=== PATIENT | female | born 2000 | race Caucasian/White ===

== ENCOUNTER 2023-02-17 19:02 | Emergency (ER) | payer OTHER, SELFPAY ==
[2023-02-17 19:21] VITALS: BP 135/80; PULSE 90; RESP 16; TEMP 36.9; O2SAT 96; BMI 33.6
--- OUTSIDE RECORDS SUMMARY | 2023-02-17 20:30 | XMS_ITS | Continuity of Care Document ---
Author Name Unknown Organization [facility] Address [address] [place] [address]- Care Team Providers Care Change Advisor Name Role Phone Jatinder GARCIA, Vannesa Primary Care Physician Encounter [facility] [place] Date(s): 07/01/22 - 08/19/[address] [address] Attending Physician: Not on Staff, Attending MD Allergies, Adverse Reactions, Alerts No Known Allergies Immunizations Given and Recorded Vaccine Date Status Refusal Reason tetanus/diphtheria/pertussis, acel(Tdap) 02/28/22 Given tetanus/diphtheria/pertussis, acel(Tdap) 01/31/17 Given SARS-CoV-2 mRNA (tozinameran 5y-11y) vax 1 11/13/20 Recorded influenza virus vaccine, inactivated 2 09/01/16 Gi chiara Not Given Vaccine Date Status Refusal Reason SARS-CoV-2 mRNA (xfajpjo-sssh-hemia) vax 3 05/11/22 Not Given Patient Refuses 1Result Comment: She can remember which one 2Admin Note: AFLURIA VACCINE 3Result Comment: declined vaccine Medications Teresa 0.35 mg oral tablet 1 tablet = 0.35 mg, By Mouth, Daily, # 30 tablet, 3 Refills, Maintenance, 05/12/22 8:36:00 EDT, Tablet, [id number], Partial fill upon patient request if the prescription is for a schedule II opioid drug., 159, cm, 05/12/22 8:27:00 EDT, Height,... Start Date: 05/12/22 Status: Ordered Colace sodium 100 mg oral capsule 100 mg, 1, capsule, By Mouth, 2 times a day, PRN, # 20 capsule, Refills 0, Tot. Refills 0, Maintenance, for constipation, 05/12/22 8:36:00 EDT, Route to Pharmacy Electronically, [facility]/pharmacy #[id number], Partial fill upon patient request if the prescription... Start Date: 05/12/22 Status: Ordered ibuprofen 800 mg oral tablet 800 mg, 1, tablet, By Mouth, 3 times a day, PRN, # 30 tablet, Refills 0, Tot. Refills 0, Maintenance, for pain, 05/12/22 8:36:00 EDT, Route to [facility]acy Electronically, [id number], Partial fill upon patient request if the prescription is for a... Start Date: 05/12/22 Status: Ordered Prenatabs Rx oral tablet 1 tablet, By Mouth, Daily, # 30 tablet, 11 Refills, Maintenance, 09/16/21 10:17:00 EDT, Tablet, [facility]/pharmacy #[id number], Partial fill upon patient request if the prescription is for a schedule II opioid drug., 1 tablet By Mouth Daily, 159, cm, 09/16/21 9:5... Start Date: 09/16/21 Status: Ordered Proctozone HC 2.5% topical cream 1 applicator, Topically, 3 times a day, apply in a thin film to the affected skin and rub in gentlyand completely, # 30 Gm, 0 Refills, Maintenance, 03/10/21 11:44:00 EDT, [facility]/pharmacy #[id number], Partialfill upon patient request if the prescription is fo... Start Date: 03/10/21 Status: Ordered Tylenol 8 Hour 650 mg oral tablet, extended release 2 tablet = 1,300 mg, By Mouth, Every 8 hours, PRN as needed for pain, # 24 tablet, 0 Refills, Maintenance, 05/12/22 8:36:00 EDT, ER Tablet, [id number], Partial fill upon patient request if the prescription is for a schedule II opioid drug., 15... Start Date: 05/12/22 Status: Ordered Problem List Condition Confirmation Course Effective Dates Status Health St atus Informant History of panic attacks Confirmed Active History of depression Confirmed Active Obese class II Confirmed Active Obesity during Confirmed Active PCOS (polycystic ovarian syndrome) Confirmed Active Confirmed Active COVID-19 vaccine second dose not administered 1 Confirmed Active Maternal varicella, non-immune Confirmed Active 1States she received one dose maybe Moderna Social History Social History Type Response Smoking Status Never (less than 100 in lifetime) entered on: 10/04/21 Sex Patient Care team information Personnel Name: Vannesa Tobias NP Address: Address: [address] [place] [address] [facility] [place], [place] [address]
--- OUTSIDE RECORDS SUMMARY | 2023-02-17 20:30 | XMS_ITS | Continuity of Care Document ---
Author Name Unknown Organization [facility] Address [address] [place] [address]- Care Team Providers Care Equine Internship Name Role Phone Jatinder GARCIA, Vannesa Primary Care Physician Encounter [facility] [place] Date(s): 02/25/22 - 03/27/[address] [address]- Allergies, Adverse Reactions, Alerts No Known Allergies Immunizations Given and Recorded Vaccine Date Status Refusal Reason tetanus/diphtheria/pertussis, acel(Tdap) 02/28/22 Given tetanus/diphtheria/pertussis, acel(Tdap) 01/31/17 Given SARS-CoV-2 mRNA (tozinameran 5y-11y) vax 1 11/13/20 Recorded influenza virus vaccine, inactivated 2 09/01/16 Gi chiara 1Result Comment: She can remember which one 2Admin Note: AFLURIA VACCINE Medications Prenatabs Rx oral tablet 1 tablet, By Mouth, Daily, # 30 tablet, 11 Refills, Maintenance, 09/16/21 10:17:00 EDT, Tablet, [facility]/pharmacy #[id number], Partial fill upon patient request if the [...] Gm, 0 Refills, Maintenance, 03/10/21 11:44:00 EDT, [id number], Partialfill upon patient request if the prescription is fo... Start Date: 03/10/21 Status: Ordered Problem List Condition Effective Dates Status Health Status Inform ant History of panic attacks(Confirmed) Active History of depression(Confirmed) Active Obese class II(Confirmed) Active Obesity during (Confirmed) Active PCOS (polycystic ovarian syndrome)(Confirmed) Active (Confirmed) Active COVID-19 vaccine second dose not administered(Confirmed) 1 Active Maternal varicella, non-immune(Confirmed) Active 1States she received one dose maybe Moderna Social History Social History Type Response Smoking Status Never (less than 100 in lifetime) entered on: 10/04/21 Sex
--- OUTSIDE RECORDS SUMMARY | 2023-02-17 20:30 | XMS_ITS | Continuity of Care Document ---
Author Name Unknown Organization [facility] Address [address] [place] [address]- Care Team Providers Care Facility Maintenance Helper Name Role Phone Jatinder GARCIA, Vannesa Primary Care Physician [phone] Encounter [facility] [place] Date(s): 12/17/21 - 03/13/[address] [address]- Attending Physician: Not on Staff, Attending MD [...] 11 Refills, Maintenance, 09/16/21 10:17:00 EDT, Tablet, [id number], Partial fill upon patient request if the [...] 0 Refills, Maintenance, 03/10/21 11:44:00 EDT, [id number], Partialfill upon patient request if the prescription [...]
--- OUTSIDE RECORDS SUMMARY | 2023-02-17 20:30 | XMS_ITS | Continuity of Care Document ---
Author Name Unknown Organization [facility] Address [address] [place] [address]- Care Team Providers Care Egg Pasteurizer Name Role Phone Jatinder GARCIA, Vannesa Primary Care Physician [place] [facility] [place] 11/30/[place] - 12/30/[address] [address]- Allergies, Adverse Reactions, Alerts No Known Allergies Immunizations Given and Recorded Vaccine Date Status Refusal Reason SARS-CoV-2 mRNA (tozinameran 5y-11y) vax 1 11/13/20 Recorded tetanus/diphtheria/pertussis, acel(Tdap) 01/31/17 Given influenza virus vaccine, inactivated 2 09/01/16 Gi chiara 1Result Comment: She can remember which one 2Admin Note: AFLURIA VACCINE Medications Prenatabs Rx oral tablet 1 tablet, By Mouth, Daily, # 30 tablet, 11 Refills, Maintenance, 09/16/21 10:17:00 EDT, Tablet, [id number], Partial fill upon patient request if the prescription is for a schedule II opioid drug., 1 tablet By Mouth Daily, 159, cm, 09/16/21 9:5... Start Date: 09/16/21 Status: Ordered Multivitamins with Folic Acid 1 mg oral tablet 1 tablet, By Mouth, Daily, # 90 tablet, 2 Refills, Maintenance, 10/04/21 11:31:00 EST, [id number], Partial fill upon patient request if the prescription is for a schedule II opioid drug., 1 tablet By Mouth Daily, 159, cm, 10/04/21 9:42:00 EST,... Start Date: 10/04/21 Status: Ordered Proctozone HC 2.5% topical cream 1 applicator, Topically, 3 times a day, apply in a thin film to the affected skin and rub in gentlyand completely, # 30 Gm, 0 Refills, Maintenance, 03/10/21 11:44:00 EDT, [id number], Partialfill upon patient request if the prescription is fo... Start Date: 03/10/21 Status: Ordered Problem List Condition Effective Dates Status Health Status Inform ant HIstory of Marijuana use 2015(Confirmed) Active History of panic attacks(Confirmed) Active History of depression(Confirmed) Active Obese class I(Confirmed) Active Obesity during (Confirmed) Active PCOS (polycystic ovarian syndrome)(Confirmed) Active (Confirmed) Active COVID-19 vaccine second dose not administered(Confirmed) 1 Active Maternal varicella, non-immune(Confirmed) Active 1States she received one dose maybe Moderna Social History Social History Type Response Smoking Status Never (less than 100 in lifetime) entered on: 10/04/21 Sex
--- OUTSIDE RECORDS SUMMARY | 2023-02-17 20:30 | XMS_ITS | Continuity of Care Document ---
Author Name Unknown Organization [facility] Address [address] [place] [address]- Care Team Providers Care Acoustical Material Worker Name Role Phone Jatinder GARCIA, Vannesa Primary Care Physician Encounter [facility] [place] Date(s): 03/05/21 - 04/04/21 [facility] [address] [address]- Allergies, Adverse Reactions, Alerts Substance Reaction Severity Status NKA Active Immunizations Given and Recorded Vaccine Date Status Refusal Reason tetanus/diphtheria/pertussis, acel(Tdap) 01/31/17 Given influenza virus vaccine, inactivated 1 09/01/16 Gi chiara 1Admin Note: AFLURIA VACCINE Medications Proctozone HC 2.5% topical cream 1 applicator, Topically, 3 times a day, apply in a thin film to the affected skin and rub in gentlyand completely, # 30 Gm, 0 Refills, Maintenance, 03/10/21 11:44:00 EDT, [facility]/pharmacy #[id number], Partialfill upon patient request if the prescription is fo... Start Date: 03/10/21 Status: Ordered Problem List Condition Effective Dates Status Health Status Inform ant Abnormal uterine bleeding(Confirmed) Active Marijuana use(Confirmed) Active Contraception management(Confirmed) Active Depression(Confirmed) Active Encounter for supervision of normal in teen primigravida, antepartum(Confirmed) Active Encounter for IUD removal(Confirmed) Active Supervision of normal first teen (Confirmed) Active Social History Social History Type Response Smoking Status Never smoker entered on: 10/04/16 Sex
--- OUTSIDE RECORDS SUMMARY | 2023-02-17 20:30 | XMS_ITS | Continuity of Care Document ---
Author Name Unknown Organization [facility] Address [address] [place] [address]- Care Team Providers Care Can Machine Operator Name Role Phone Jatinder GARCIA, Vannesa Primary Care Physician [place] [facility] [place] Date(s): 04/21/22 - 05/21/[address] [address] Allergies, Adverse Reactions, Alerts No Known Allergies Immunizations Given and Recorded Vaccine Date Status Refusal Reason tetanus/diphtheria/pertussis, acel(Tdap) 02/28/22 Given tetanus/diphtheria/pertussis, acel(Tdap) 01/31/17 Given SARS-CoV-2 mRNA (tozinameran 5y-11y) vax 1 11/13/20 Recorded influenza virus vaccine, inactivated 2 09/01/16 Gi chiara Not Given Vaccine Date Status Refusal Reason SARS-CoV-2 mRNA ([id number]) vax 3 05/11/22 Not Given Patient Refuses 1Result Comment: She can remember which one 2Admin Note: AFLURIA VACCINE 3Result Comment: declined vaccine Medications Teresa 0.35 mg oral tablet 1 tablet = 0.35 mg, By Mouth, Daily, # 30 tablet, 3 Refills, Maintenance, 05/12/22 8:36:00 EDT, Tablet, [id number], Partial fill upon patient request if the prescription is for a schedule II opioid drug., 159, cm, 05/12/22 8:27:00 EDT, Height,... Start Date: 05/12/22 Status: Ordered Colace sodium 100 mg oral capsule 100 mg, 1, capsule, By Mouth, 2 times a day, PRN, # 20 capsule, Refills 0, Tot. Refills 0, Maintenance, for constipation, 05/12/22 8:36:00 EDT, Route to Pharmacy Electronically, [facility]/pharmacy #[id number], Partial fill upon patient request [...] Gm, 0 Refills, Maintenance, 03/10/21 11:44:00 EDT, [facility]/pharmacy #[id number], Partialfill upon patient request if the prescription [...] Date: 05/12/22 Status: Ordered Problem List Condition Effective Dates [...]
--- OUTSIDE RECORDS SUMMARY | 2023-02-17 20:30 | XMS_ITS | Continuity of Care Document ---
Author Name Unknown Organization [facility] Address [address] [place] [address]- Care Team Providers Care Pipe Insulator Helper Name Role Phone Jatinder GARCIA, Vannesa Primary Care Physician [place] [facility] [place] 03/09/[place] - 04/08/[address] [address]- Allergies, Adverse Reactions, Alerts Substance Reaction Severity [...] 0 Refills, Maintenance, 03/10/21 11:44:00 EDT, [id number], Partialfill upon patient request if the [...]
--- OUTSIDE RECORDS SUMMARY | 2023-02-17 20:30 | XMS_ITS | Continuity of Care Document ---
Author Name Unknown Organization [facility] Address [address] [place] [address]- Care Team Providers Care Video Tape Editor Name Role Phone Jatinder GARCIA, Vannesa Primary Care Physician [place] [facility] [place] - 12/22/[address] [address]- Attending Physician: Not on Staff, Attending MD [...] 0 Refills, Maintenance, 03/10/21 11:44:00 EDT, [id number], Partialfill upon patient request if the prescription [...]
--- OUTSIDE RECORDS SUMMARY | 2023-02-17 20:31 | XMS_ITS | Continuity of Care Document ---
Author Name Unknown Organization [facility] Address [address] [place] [address]- Care Team Providers Care Electric Motor Assembler And Tester Name Role Phone Jatinder GARCIA, Vannesa Primary Care Physician [place] [facility] [place]/10[place] - 06/09/[address] [address] Allergies, Adverse Reactions, Alerts No Known Allergies Immunizations Given and Recorded Vaccine Date Status Refusal Reason tetanus/diphtheria/pertussis, acel(Tdap) 02/28/22 Given tetanus/diphtheria/pertussis, acel(Tdap) 01/31/17 Given SARS-CoV-2 mRNA (tozinameran 5y-11y) vax 1 11/13/20 Recorded influenza virus vaccine, inactivated 2 09/01/16 Gi chiara Not Given Vaccine Date Status Refusal Reason SARS-CoV-2 mRNA (faehuwh-bxmq-qoksx) vax 3 05/11/22 Not Given Patient Refuses 1Result Comment: She can remember which one 2Admin Note: AFLURIA VACCINE 3Result Comment: declined vaccine Medications Teresa 0.35 mg oral tablet 1 tablet = 0.35 mg, By Mouth, Daily, # 30 tablet, 3 Refills, Maintenance, 05/12/22 8:36:00 EDT, Tablet, [id number], Partial fill upon patient request if the prescription is for a schedule II opioid drug., 159, cm, 05/12/22 8:27:00 EDT, Height,... Start Date: 05/12/22 Status: Ordered Colace sodium 100 mg oral capsule 100 mg, 1, capsule, By Mouth, 2 times a day, PRN, # 20 capsule, Refills 0, Tot. Refills 0, Maintenance, for constipation, 05/12/22 8:36:00 EDT, Route to Pharmacy Electronically, [facility]/pharmacy #[id number], Partial fill upon patient request if [...] Gm, 0 Refills, Maintenance, 03/10/21 11:44:00 EDT, [facility]/pharmacy #[id number], Partialfill upon patient request if the prescription [...]
--- OUTSIDE RECORDS SUMMARY | 2023-02-17 20:31 | XMS_ITS | Continuity of Care Document ---
Author Name Unknown Organization [facility] Address [address] [place] [address]- Care Team Providers Care Wood Technologist Name Role Phone Jatinder GARCIA, Vannesa Primary Care Physician Encounter [facility] [place] Date(s): 11/04/21 - 12/04/[address] [address]- Allergies, Adverse Reactions, Alerts No Known Allergies [...] 0 Refills, Maintenance, 03/10/21 11:44:00 EDT, [id number], Partialfill upon patient request if the prescription [...]
--- OUTSIDE RECORDS SUMMARY | 2023-02-17 20:31 | XMS_ITS | Continuity of Care Document ---
Author Name Unknown Organization [facility] Address [address] [place] [address]- Care Team Providers Care Freight Separator Name Role Phone Jatinder GARCIA, Vannesa Primary Care Physician Encounter [facility] [place] Date(s): 10/22/21 - 12/19/[address] [address] Attending Physician: Not on Staff, Attending MD [...] 0 Refills, Maintenance, 03/10/21 11:44:00 EDT, [id number], Partialfill upon patient request if the prescription [...]
--- OUTSIDE RECORDS SUMMARY | 2023-02-17 20:31 | XMS_ITS | Continuity of Care Document ---
Author Name Unknown Organization [facility] Address [address] [place] [address]- Care Team Providers Care Welder Experimental Name Role Phone Jatinder GARCIA, Vannesa Primary Care Physician En[place] [facility] [place] Date(s): 09/28/22 - 10/28/[address] [address] Allergies, Adverse Reactions, Alerts No Known Allergies Immunizations Given and Recorded Vaccine Date Status Refusal Reason tetanus/diphtheria/pertussis, acel(Tdap) 02/28/22 Given tetanus/diphtheria/pertussis, acel(Tdap) 01/31/17 Given SARS-CoV-2 mRNA (tozinameran 5y-11y) vax 1 11/13/20 Recorded influenza virus vaccine, inactivated 2 09/01/16 Gi chiara Not Given Vaccine Date Status Refusal Reason SARS-CoV-2 mRNA (bpanwoa-yfrw-jrrpa) vax 3 05/11/22 Not Given Patient Refuses 1Result Comment: She can remember which one 2Admin Note: AFLURIA VACCINE 3Result Comment: declined vaccine Medications Teresa 0.35 mg oral tablet 1 tablet = 0.35 mg, By Mouth, Daily, # 30 tablet, 3 Refills, Maintenance, 05/12/22 8:36:00 EDT, Tablet, [id number], Partial fill upon patient request if the prescription is for a schedule II opioid drug., 159, cm, 05/12/22 8:27:00 EDT, Height,... Start Date: 05/12/22 Status: Ordered Colace sodium 100 mg oral capsule 100 mg, 1, capsule, By Mouth, 2 times a day, PRN, # 20 capsule, Refills 0, Tot. Refills 0, Maintenance, for constipation, 05/12/22 8:36:00 EDT, Route to Pharmacy Electronically, [facility]/pharmacy #[id number], Partial fill upon patient request [...] 11 Refills, Maintenance, 09/16/21 10:17:00 EDT, Tablet, [facility]/pharmacy #[id number], Partial fill upon patient request [...] Gm, 0 Refills, Maintenance, 03/10/21 11:44:00 EDT, [facility]/pharmacy #[id number], Partialfill upon patient request if the [...] on: 10/04/21 Sex Patient Care team information Care Team Personnel Name: Vannesa Tobias NP Position: S Outreach Member Role: PCP Address: Address: [address] [place] [address] [place] [address]- Care Team Related Persons Name: LLOYD AUSTIN Address: [employer] Address: [address] [place] [address] Name: SADIA LI Address: [address] [place] [address] Name: GEORGINA LI Address: [address] [place] [address]
--- OUTSIDE RECORDS SUMMARY | 2023-02-17 20:31 | XMS_ITS | Continuity of Care Document ---
Author Name Unknown Organization [facility] Address [address] [place] [address]- Care Team Providers Care Customer Relations Coordinator Name Role Phone Ofelia GARCIA, Gia Primary Care Physician En[place] [facility] [place] Date(s): 06/01/20 - 07/01/20 [facility] [address] [address]- [facility] Allergies, Adverse Reactions, Alerts Substance Reaction Severity Status NKA Active Immunizations Given and Recorded Vaccine Date Status Refusal Reason tetanus/diphtheria/pertussis, acel(Tdap) 01/31/17 Given influenza virus vaccine, inactivated 1 09/01/16 Gi chiara 1Admin Note: AFLURIA VACCINE Medications azithromycin 500 mg oral tablet 2 tablet = 1,000 mg, By Mouth, Once, # 2 tablet, 0 Refills, Soft Stop, 04/16/19 8:39:46 EDT, Tablet Start Date: 04/16/19 Status: Ordered Problem List Condition Effective Dates Status Health Status Inform ant Marijuana use(Confirmed) Active Contraception management(Confirmed) Active Depression(Confirmed) Active Encounter for supervision of normal in teen primigravida, antepartum(Confirmed) Active Encounter for IUD removal(Confirmed) Active Supervision of normal first teen (Confirmed) Active Social History Social History Type Response Smoking Status Never smoker entered on: 10/04/16 Sex
--- OUTSIDE RECORDS SUMMARY | 2023-02-17 20:31 | XMS_ITS | Continuity of Care Document ---
Author Name Unknown Organization [facility] Address [address] [place] [address]- Care Team Providers Care Social Staff Worker Name Role Phone Jatinder GARCIA, Vannesa Primary Care Physician Encounter [facility] [place] Date(s): 09/09/21 - 10/09/[address] [address]- Allergies, Adverse Reactions, Alerts Substance Reaction Severity [...] Gm, 0 Refills, Maintenance, 03/10/21 11:44:00 EDT, [facility]/pharmacy #[id number], Partialfill upon patient request if the prescription is fo... Start Date: 03/10/21 Status: Ordered pyridoxine 25 mg oral tablet 1 tablet = 25 mg, By Mouth, 3 times a day, for 14 days, # 42 tablet, 1 Refills, Acute 11/01/21 11:31:00 EST, 10/04/21 11:31:00 EST, Tablet, [facility]/pharmacy #[id number], Partial fill upon patient request if the prescription is for a schedule II opioid drug., 15... Start Date: 10/04/21 Stop Date: 11/01/21 Status: Ordered Unisom 25 mg oral tablet 1 tablet = 25 mg, By Mouth, Daily at bedtime, PRN for sleep, # 16 tablet, 0 Refills, Acute 10/22/2111:31:00 EST, 10/04/21 11:31:00 EST, Tablet, [id number], Partial fill upon patient request if the prescription is for a schedule II opioid drug... Start Date: 10/04/21 Stop Date: 10/22/21 Status: Ordered Problem List Condition Effective Dates Status Health Status Inform ant HIstory of Marijuana use 2015(Confirmed) Active History of Depression in [employer] 2014- 2015(Confirmed) Active History of panic attacks(Confirmed) Active History of chlamydia(Confirmed) Active Encounter for IUD removal(Confirmed) Active PCOS (polycystic ovarian syndrome)(Confirmed) Active COVID-19 vaccine second dose not administered(Confirmed) 1 Active 1States she received one dose maybe Moderna Social History Social History Type Response Smoking Status Never (less than 100 in lifetime) entered on: 10/04/21 Sex
--- OUTSIDE RECORDS SUMMARY | 2023-02-17 20:31 | XMS_ITS | Continuity of Care Document ---
Author Name Unknown Organization [facility] Address [address] [place] [address]- Care Team Providers Care Tight Rope Walker Name Role Phone Vannesa Tobias NP Primary Care Physician [place] [facility] [place] - 01/28/[address] [address] Attending Physician: Lavell Batres Admitting Physician: Lavell Batres Referring Physician: AdmtrLavell Allergies, Adverse Reactions, Alerts No Known Allergies Immunizations Given and Recorded Vaccine Date Status Refusal Reason tetanus/diphtheria/pertussis, acel(Tdap) 02/28/22 Given tetanus/diphtheria/pertussis, acel(Tdap) 01/31/17 Given SARS-CoV-2 mRNA (tozinameran 5y-11y) vax 1 11/13/20 Recorded influenza virus vaccine, inactivated 2 09/01/16 Gi chiara Not Given Vaccine Date Status Refusal Reason SARS-CoV-2 mRNA (atkiqgu-jchw-exruu) vax 3 05/11/22 Not Given Patient Refuses 1Result Comment: She can remember which one 2Admin Note: AFLURIA VACCINE 3Result Comment: declined vaccine Medications Teresa 0.35 mg oral tablet 1 tablet = 0.35 mg, By Mouth, Daily, # 30 tablet, 3 Refills, Maintenance, 05/12/22 8:36:00 EDT, Tablet, [id number], Partial fill upon patient request if the prescription is for a schedule II opioid drug., 159, cm, 05/12/22 8:27:00 EDT, Height,... Start Date: 05/12/22 Status: Ordered Colace sodium 100 mg oral capsule 100 mg, 1, capsule, By Mouth, 2 times a day, PRN, # 20 capsule, Refills 0, Tot. Refills 0, Maintenance, for constipation, 05/12/22 8:36:00 EDT, Route to Pharmacy Electronically, [facility]/pharmacy #[id number], Partial fill upon patient request if the prescription... Start Date: 05/12/22 Status: Ordered ibuprofen 800 mg oral tablet 800 mg, 1, tablet, By Mouth, 3 times a day, PRN, # 30 tablet, Refills 0, Tot. Refills 0, Maintenance, for pain, 05/12/22 8:36:00 EDT, Route to Pharmacy Electronically, [facility]/pharmacy #[id number], Partial fill upon patient request if the prescription is for a... Start Date: 05/12/22 Status: Ordered Prenatabs Rx oral tablet 1 tablet, By Mouth, Daily, # 30 tablet, 11 Refills, Maintenance, 09/16/21 10:17:00 EDT, Tablet, [facility]/pharmacy #[id number], Partial fill upon patient [...] 0 Refills, Maintenance, 03/10/21 11:44:00 EDT, [facility]/pharmacy #[id number], Partialfill upon patient request if the prescription [...] 100 in lifetime) entered on: 10/04/21 Sex Note * Dominguez Orellana: PERFORM, SIGN, VERIFY Event Display: Patient Education/Instruction Authored Date: [id number] [facility] Sales Center Manager Clinical Summary Person Information Visit Date 03/17/2017 4:20 PM Name SANA LOCK Age 16 Years 2000 12:00 AM PCP Rhea RAMSAY, Paula Overton PCP Sex Female Race White Ethnicity Non-/Non- Language Honduran You can now view a summary of your hospital visit from the comfort of your home through a free online portal called katena. katena is a website that allows you to securely view your medical information including discharge summary, medications and follow-up visits. You can also send a secure electronic message to your doctor???s office to request appointments, renew medicationsor just ask a question. You can enroll at [email or web address] or register during your next office visit. Smoking can increase your chances of developing chronic health problems and can cause harmful effects to other family members in your house. If you smoke, you are strongly encouraged to quit. Please call the [place] Smokers??? Helpline at 7-007-MGIFNOW (or ) or log on to [email or web address] for more information. Reason for Visit: Allergy Info: NKA Smoking Status Never smoker Vital Signs Height Weight BMI Blood Pressure / Temperature Pulse Rate Respiratory Rate 02 Sat Mode of Delivery / Medication Information Levonorgestrel (Liletta 52 mg intrauteral device) 1 each, Vaginally, once, Refills: 0 Multivitamin, ( Multivitamins with Folic Acid 1 mg oral tablet) 1 tablet, Oral, Daily, 90 days, Refills: 3 Future Orders No future orders Orders Completed this Visit No visit orders documented Problem List Problem Patient encounter status Cannabis abuse Depressive disorder Teenage Diagnosis Procedures No Procedures Documented If the following labs have been performed in the last year, the most recent result is displayed below. Diagnostic Results Lab Result Value Date Lead Hemoglobin A1C LDL HDL Triglycerides Total Cholesterol Disclaimer: The information provided is of a general nature and is intended to be used in conjunction with the recommendations and advice of your health care practitioner. Every effort has been made to ensure that the information provided is accurate and complete at the time it is provided to you however, as your needs change, or, as new information becomes available, different or additional instructions may be required. If you have questions, please consult with your primary care provider or pharmacist, as appropriate. This information is not intended to serve as substitution for assessment and evaluation by a qualified health care provider. If you do not have a primary care provider, you may find a [facility] provider by calling [facility] at [phone]. For information about the plan of care including goals and instructions for your diagnosis, please see the patient education orders section of this document. Patient Visit Summary: Future Appointments: Type Location Start Finish State Return [facility] Sales Center Manager 03/24/2017 4:20 PM 03/24/2017 4:40 PM Pending Return [facility] Sales Center Manager 03/28/2017 10:00 AM 03/28/2017 10:20 AM Pending Return [facility] Sales Center Manager 04/04/2017 10:00 AM 04/04/2017 10:20 AM Pending Return [facility] Sales Center Manager 04/11/2017 10:40 AM 04/11/2017 11:00 AM Pending Follow-Up Instructions Patient Education Materials Additional Instructions: Patient Care team information Care Team Personnel Name: Vannesa Tobias NP Position: S Outreach Member Role: PCP Address: Address: [address] [place] [address] [place] [address]- Care Team Related Persons Name: LLOYD AUSTIN Address: AMERCN Address: [address] [place], [place] Name: SADIA LI Address: [address] [place], [place] Name: GEORGINA LI Address: [address] [place], [place]
--- OUTSIDE RECORDS SUMMARY | 2023-02-17 20:31 | XMS_ITS | Continuity of Care Document ---
Author Name Unknown Organization [facility] Address [address] [place] [address]- Care Team Providers Care Blueprint Tracer Name Role Phone Jatinder GARCIA, Vannesa Primary Care Physician [place] [facility] [place] 08/12/[address] [address]- [facility] Attending Physician: Lola Arevalo MD Admitting Physician: Lola Arevalo MD Referring Physician: Clara Malik DO Allergies, Adverse Reactions, Alerts Substance Reaction Severity Status NKA Active Immunizations Given and Recorded Vaccine Date Status Refusal Reason tetanus/diphtheria/pertussis, acel(Tdap) 01/31/17 Given influenza virus vaccine, inactivated 1 09/01/16 Gi chiara 1Admin Note: AFLURIA VACCINE Medications 12/02 oral tablet 1 tablet, By Mouth, Daily, # 28 tablet, 11 Refills, Maintenance, 08/06/20 10:23:00 EDT, Tablet, [id number], 1 tablet By Mouth Daily, 159, cm, 08/06/20 9:49:00 EDT, Height Start Date: 08/06/20 Status: Ordered Problem List Condition Effective Dates [...]
--- OUTSIDE RECORDS SUMMARY | 2023-02-17 20:31 | XMS_ITS | Continuity of Care Document ---
Author Name Unknown Organization [facility] Address [address] [place] [address]- Care Team Providers Care Densitometrist Name Role Phone Jatinder GARCIA, Vannesa Primary Care Physician [phone] Encounter [facility] [place] Date(s): 05/09/22 - 06/08/[address] [address] Allergies, Adverse Reactions, Alerts No Known Allergies Immunizations Given and Recorded Vaccine Date Status Refusal Reason tetanus/diphtheria/pertussis, acel(Tdap) 02/28/22 Given tetanus/diphtheria/pertussis, acel(Tdap) 01/31/17 Given SARS-CoV-2 mRNA (tozinameran 5y-11y) vax 1 11/13/20 Recorded influenza virus vaccine, inactivated 2 09/01/16 Gi chiara Not Given Vaccine Date Status Refusal Reason SARS-CoV-2 mRNA (kzzsail-pkog-jljwq) vax 3 05/11/22 Not Given Patient Refuses 1Result Comment: She can remember which one 2Admin Note: AFLURIA VACCINE 3Result Comment: declined vaccine Medications Teresa 0.35 mg oral tablet 1 tablet = 0.35 mg, By Mouth, Daily, # 30 tablet, 3 Refills, Maintenance, 05/12/22 8:36:00 EDT, Tablet, [id number], Partial fill upon patient request if the prescription is for a schedule II opioid drug., 159, cm, 05/12/22 8:27:00 EDT, Height,... Start Date: 05/12/22 Status: Ordered Colace sodium 100 mg oral capsule 100 mg, 1, capsule, By Mouth, 2 times a day, PRN, # 20 capsule, Refills 0, Tot. Refills 0, Maintenance, for constipation, 05/12/22 8:36:00 EDT, Route to Pharmacy Electronically, [facility]/pharmacy #[id number], Partial fill upon patient request if [...] Gm, 0 Refills, Maintenance, 03/10/21 11:44:00 EDT, [facility]/pharmacy #[id number], Partialfill upon patient request if the prescription [...]
--- OUTSIDE RECORDS SUMMARY | 2023-02-17 20:31 | XMS_ITS | Continuity of Care Document ---
Author Name Unknown Organization [facility] Address [address] [place] [address]- Care Team Providers Care Rn Medicare Name Role Phone Jatinder GARCIA, Vannesa Primary Care Physician [phone] Encounter [facility] [place] Date(s): 03/11/22 - 06/12/[address] [address] Attending Physician: Not on Staff, Attending MD Allergies, Adverse Reactions, Alerts No Known Allergies Immunizations Given and Recorded Vaccine Date Status Refusal Reason tetanus/diphtheria/pertussis, acel(Tdap) 02/28/22 Given tetanus/diphtheria/pertussis, acel(Tdap) 01/31/17 Given SARS-CoV-2 mRNA (tozinameran 5y-11y) vax 1 11/13/20 Recorded influenza virus vaccine, inactivated 2 09/01/16 Gi chiara Not Given Vaccine Date Status Refusal Reason SARS-CoV-2 mRNA (byjdjln-fdzb-qfvrc) vax 3 05/11/22 Not Given Patient Refuses 1Result Comment: She can remember which one 2Admin Note: AFLURIA VACCINE 3Result Comment: declined vaccine Medications Teresa 0.35 mg oral tablet 1 tablet = 0.35 mg, By Mouth, Daily, # 30 tablet, 3 Refills, Maintenance, 05/12/22 8:36:00 EDT, Tablet, [id number], Partial fill upon patient request if the prescription is for a schedule II opioid drug., 159, cm, 05/12/22 8:27:00 EDT, Height,... Start Date: 05/12/22 Status: Ordered Colace sodium 100 mg oral capsule 100 mg, 1, capsule, By Mouth, 2 times a day, PRN, # 20 capsule, Refills 0, Tot. Refills 0, Maintenance, for constipation, 05/12/22 8:36:00 EDT, Route to Pharmacy Electronically, [facility]/pharmacy #[id number], Partial fill upon patient [...] 11 Refills, Maintenance, 09/16/21 10:17:00 EDT, Tablet, [facility]/pharmacy #[id number], Partial fill upon patient [...] Gm, 0 Refills, Maintenance, 03/10/21 11:44:00 EDT, [facility]/pharmacy #[id number], Partialfill upon patient request if [...]
--- OUTSIDE RECORDS SUMMARY | 2023-02-17 20:31 | XMS_ITS | Continuity of Care Document ---
Author Name Unknown Organization [facility] Address [address] [place] [address]- Care Team Providers Care Missile Tracking Technician Name Role Phone Jatinder GARCIA, Vannesa Primary Care Physician Encounter [facility] [place] Date(s): 04/27/22 - 06/10/[address] [address] Attending Physician: Not on Staff, Attending MD Allergies, Adverse Reactions, Alerts No Known Allergies Immunizations Given and Recorded Vaccine Date Status Refusal Reason tetanus/diphtheria/pertussis, acel(Tdap) 02/28/22 Given tetanus/diphtheria/pertussis, acel(Tdap) 01/31/17 Given SARS-CoV-2 mRNA (tozinameran 5y-11y) vax 1 11/13/20 Recorded influenza virus vaccine, inactivated 2 09/01/16 Gi chiara Not Given Vaccine Date Status Refusal Reason SARS-CoV-2 mRNA (bxlngle-wjqj-mqgii) vax 3 05/11/22 Not Given Patient Refuses 1Result Comment: She can remember which one 2Admin Note: AFLURIA VACCINE 3Result Comment: declined vaccine Medications Teresa 0.35 mg oral tablet 1 tablet = 0.35 mg, By Mouth, Daily, # 30 tablet, 3 Refills, Maintenance, 05/12/22 8:36:00 EDT, Tablet, [id number], Partial fill upon patient request if the prescription is for a schedule II opioid drug., 159, cm, 05/12/22 8:27:00 EDT, Height,... Start Date: 05/12/22 Status: Ordered Colace sodium 100 mg oral capsule 100 mg, 1, capsule, By Mouth, 2 times a day, PRN, # 20 capsule, Refills 0, Tot. Refills 0, Maintenance, for constipation, 05/12/22 8:36:00 EDT, Route to Pharmacy Electronically, [facility]/pharmacy #[id number], Partial fill upon patient request [...] 11 Refills, Maintenance, 09/16/21 10:17:00 EDT, Tablet, [facility]/pharmacy #[id number], Partial fill upon patient request [...] Gm, 0 Refills, Maintenance, 03/10/21 11:44:00 EDT, [facility]/pharmacy #[id number], Partialfill upon patient request if [...]
--- OUTSIDE RECORDS SUMMARY | 2023-02-17 20:31 | XMS_ITS | Continuity of Care Document ---
Author Name Unknown Organization [facility] Address [address] [place] [address]- Care Team Providers Care Casing Running Machine Tender Name Role Phone Jatinder GARCIA, Vannesa Primary Care Physician [phone] Encounter [facility] [place] Date(s): 12/17/21 - 03/27/[address] [address]- Attending Physician: Not on Staff, Attending MD [...] Refills, Maintenance, 09/16/21 10:17:00 EDT, Tablet, [id number], Partial fill upon patient request if the [...] 0 Refills, Maintenance, 03/10/21 11:44:00 EDT, [id number], Partialfill upon patient request if the prescription [...]
--- OUTSIDE RECORDS SUMMARY | 2023-02-17 20:31 | XMS_ITS | Continuity of Care Document ---
Author Name Unknown Organization [facility] Address [address] [place] [address]- Care Team Providers Care Master Control Supervisor Name Role Phone Jatinder GARCIA, Vannesa Primary Care Physician [phone] En[place] [facility] [place] Date(s): 07/20/22 - 08/19/[address] [address] Attending Physician: Lavell Batres Admitting Physician: AdmLavell monroy Referring Physician: Admtr, Ar8 Allergies, Adverse Reactions, Alerts No Known Allergies Immunizations Given and Recorded Vaccine Date Status Refusal Reason tetanus/diphtheria/pertussis, acel(Tdap) 02/28/22 Given tetanus/diphtheria/pertussis, acel(Tdap) 01/31/17 Given SARS-CoV-2 mRNA (tozinameran 5y-11y) vax 1 11/13/20 Recorded influenza virus vaccine, inactivated 2 09/01/16 Gi chiara Not Given Vaccine Date Status Refusal Reason SARS-CoV-2 mRNA (glmwfpo-lyuc-wmnbs) vax 3 05/11/22 Not Given Patient Refuses 1Result Comment: She can remember which one 2Admin Note: AFLURIA VACCINE 3Result Comment: declined vaccine Medications Teresa 0.35 mg oral tablet 1 tablet = 0.35 mg, By Mouth, Daily, # 30 tablet, 3 Refills, Maintenance, 05/12/22 8:36:00 EDT, Tablet, [id number], Partial fill upon patient request if the prescription is for a schedule II opioid drug., 159, cm, 05/12/22 8:27:00 EDT, Height,... Start Date: 05/12/22 Status: Ordered Colace sodium 100 mg oral capsule 100 mg, 1, capsule, By Mouth, 2 times a day, PRN, # 20 capsule, Refills 0, Tot. Refills 0, Maintenance, for constipation, 05/12/22 8:36:00 EDT, Route to Pharmacy Electronically, [facility]/pharmacy #[id number], Partial fill upon patient request if the prescription... Start Date: 05/12/22 Status: Ordered ibuprofen 800 mg oral tablet 800 mg, 1, tablet, By Mouth, 3 times a day, PRN, # 30 tablet, Refills 0, Tot. Refills 0, Maintenance, for pain, 05/12/22 8:36:00 EDT, Route to Pharmacy Electronically, [facility]/pharmacy #[id number], Partial fill upon patient request if the prescription is for a... Start Date: 05/12/22 Status: Ordered Prenatabs Rx oral tablet 1 tablet, By Mouth, Daily, # 30 tablet, 11 Refills, Maintenance, 09/16/21 10:17:00 EDT, Tablet, [facility]/pharmacy #[id number], Partial fill upon patient request if [...] Gm, 0 Refills, Maintenance, 03/10/21 11:44:00 EDT, [facility]/pharmacy #[id number], Partialfill upon patient request if the prescription is fo... Start Date: 03/10/21 Status: Ordered Tylenol 8 Hour 650 mg oral tablet, extended release 2 tablet = 1,300 mg, By Mouth, Every 8 hours, PRN as needed for pain, # 24 tablet, 0 Refills, Maintenance, 05/12/22 8:36:00 EDT, ER Tablet, [facility]/pharmacy #[id number], Partial fill upon patient request if the prescription is for a schedule II opioid drug., 15... Start Date: 6/30/22 Status: Ordered Problem List Condition Confirmation Course [...] Personnel Name: Vannesa Tobias NP Address: Address: [address] [place] [address] [facility] [place], [place] [address]
--- OUTSIDE RECORDS SUMMARY | 2023-02-17 20:31 | XMS_ITS | Continuity of Care Document ---
Author Name Unknown Organization [facility] Address [address] [place] [address]- Care Team Providers Care Regional Company Truck Driver Name Role Phone Jatinder GARCIA, Vannesa Primary Care Physician [phone] [place] [facility] [place]10[place] - 04/09/[address] [address]- Attending Physician: Lavell Batres Admitting Physician: Lavell Batres Referring Physician: AdmtrLavell Allergies, Adverse Reactions, Alerts Substance Reaction Severity [...]
--- OUTSIDE RECORDS SUMMARY | 2023-02-17 20:31 | XMS_ITS | Continuity of Care Document ---
Author Name Unknown Organization [facility] Address [address] [place] [address]- Care Team Providers Care Porcelain Buildup Assistant Name Role Phone Vannesa Tobias NP Primary Care Physician Encounter [facility] [place] Date(s): 12/19/22 - 01/18/[address] [address] Allergies, Adverse Reactions, Alerts No Known Allergies Immunizations Given and Recorded Vaccine Date Status Refusal Reason tetanus/diphtheria/pertussis, acel(Tdap) 02/28/22 Given tetanus/diphtheria/pertussis, acel(Tdap) 01/31/17 Given SARS-CoV-2 mRNA (tozinameran 5y-11y) vax 1 11/13/20 Recorded influenza virus vaccine, inactivated 2 09/01/16 Gi chiara Not Given Vaccine Date Status Refusal Reason SARS-CoV-2 mRNA (iezstjf-nslw-lsdtv) vax 3 05/11/22 Not Given Patient Refuses 1Result Comment: She can remember which one 2Admin Note: AFLURIA VACCINE 3Result Comment: declined vaccine Medications Teresa 0.35 mg oral tablet 1 tablet = 0.35 mg, By Mouth, Daily, # 30 tablet, 3 Refills, Maintenance, 05/12/22 8:36:00 EDT, Tablet, [id number], Partial fill upon patient request if the [...] Route to Pharmacy Electronically, [facility]/pharmacy #[id number], Partial fill upon patient request if [...] S Outreach Member Role: PCP Address: Address: [address] [place] [address] [place] [address]- Care Team Related Persons Name: LLOYD AUSTIN Address: AMERCN Address: [address] [place] [address] Name: SADIA LI Address: [address] [place] [address] Name: GEORGINA LI Address: [address] [place] [address]
--- OUTSIDE RECORDS SUMMARY | 2023-02-17 20:31 | XMS_ITS | Continuity of Care Document ---
Author Name Unknown Organization [facility] Address [address] [place] [address]- Care Team Providers Care Cryptographic Vulnerability Analyst Name Role Phone Jatinder GARCIA, Vannesa Primary Care Physician Encounter [facility] [place] Date(s): 09/15/21 - 10/15/[address] [address]- Allergies, Adverse Reactions, Alerts Substance Reaction Severity [...] Gm, 0 Refills, Maintenance, 03/10/21 11:44:00 EDT, [facility]/pharmacy #[id number], Partialfill upon patient request if the prescription is fo... Start Date: 03/10/21 Status: Ordered pyridoxine 25 mg oral tablet 1 tablet = 25 mg, By Mouth, 3 times a day, for 14 days, # 42 tablet, 1 Refills, Acute 11/01/21 11:31:00 EST, 10/04/21 11:31:00 EST, Tablet, [facility]/pharmacy #[id number], Partial fill upon patient request [...] use 2015(Confirmed) Active History of Depression in [employer] 2014- 2015(Confirmed) Active History of panic attacks(Confirmed) Active History of chlamydia(Confirmed) Active Encounter for IUD removal(Confirmed) Active PCOS (polycystic ovarian syndrome)(Confirmed) Active COVID-19 vaccine second dose not administered(Confirmed) 1 Active 1States she received one dose maybe Moderna Social History Social History Type Response Smoking Status Never (less than 100 in lifetime) entered on: 10/04/21 Sex
--- NOTE | 2023-02-17 21:50 | ED.GENADULT ---
HPI - General Adult General Chief complaint: Wound/Laceration Stated complaint: cyst on armpit Time Seen by Provider: 02/17/23 21:46 Source: patient and RN notes reviewed Mode of arrival: ambulatory Limitations: no limitations History of Present Illness HPI narrative: 22-year-old female presents for evaluation of a cyst in her right arm pit. She reports that about 1 week ago she felt as if she had an ingrown hair The area has been getting progressively bigger, more painful and now there is surrounding redness Denies any fevers, chills The patient is not a diabetic She has moderate 6/10 pain to the area that is worse with any kind of movement Related Data Previous Rx's Medication Instructions Recorded doxycycline hyclate 100 mg capsule 100 mg PO BID #14 caps 02/17/23 Allergies Allergy/AdvReac Type Severity Reaction Status Date / Time No Known Allergies Allergy Verified 02/17/23 19:24 [No Known Allergies*] Review of Systems Constitutional: Constitutional: Reports as per HPI, Denies chills and Denies fever(s) PMFSH Social History Social History Advance Directives: No Advance Directives Information Provided: No Physical Exam ED Vital Signs: Vital Signs - 24 hr 02/17/23 19:21 Temperature 98.4 F Pulse Rate 90 Respiratory Rate 16 Blood Pressure 135/80 Pulse Oximetry 96 Oxygen Delivery Method Room Air BMI result Body Mass Index 33.6 Const General: healthy appearing, comfortable, no acute distress, alert and awake Nutritional Appearance: well nourished Orientation/consciousness: patient oriented x3 Resp Effort & Inspection: normal respiratory effort, able to speak in complete sentences, no audible wheezes and not labored Skin Other: Patient has an approximately 4 cm area of erythema spur fluctuance. The area is exquisitely tender. There is surrounding erythema extending to the right underarm. No streaking erythema General skin exam: elasticity normal Neuro General: patient oriented x3 Cranial nerves: Yes CN's II-XII intact bilaterally and Yes Bilaterally intact EOM present Cognition (Neuro): normal cognition Extrem Other: Moving all extremities well without any obvious deformities Medications Administered Discontinued Medications Generic Name Dose Route Start Last Admin Trade Name Freq PRN Reason Stop Dose Admin Lidocaine HCl 5 ml 02/17/23 21:49 02/17/23 22:01 Lidocaine Hcl 1 % Mpf 5 Ml Vial INFILTRATI 02/17/23 21:50 5 ml ONCE ONE Administration Procedures Abscess I/D Site: other (Right axilla) Side (if applicable): right Local Anesthetic: lidocaine 1% Amount of anesthesia used (mL): 4 Technique: incised with blade Amount of fluid expressed (mL): 10 Sent for culture/gram staining?: No Irrigation: Yes Packing used?: [email or web address] Medical Decision Making Medical Decision Making MDM Narrative: Patient has an abscess that appears amenable to incision and drainage, see procedure note. No evidence of systemic infection Differential Diagnosis Abscess Cellulitis Sebaceous cyst Ingrown hair Discharge Plan Discharge Clinical Impression: Abscess Patient Disposition: Home, Self-Care Instructions: Incision and Drainage (ED) Additional Instructions: Take doxycycline two times daily for the next 7 days Apply warm compresses every 4 hours for 10-15 minutes for the next 2-3 days Return in 48-72 hours for re-evaluation and gauze packing removal Return for new or worsening symptoms sooner Prescriptions: New doxycycline hyclate 100 mg capsule 100 mg PO BID Qty: 14 0RF
[2023-02-17] MEDS: Lidocaine HCl 1 % MPF 5 ML VIAL INFILTRATI (22:01)
== END 2023-02-17 22:49 | disposition home or self-care (01) ==
PROVIDERS: Emergency Provider Emergency Medicine
DX: L02.411 Cutaneous abscess of right axilla (principal)
CPT/HCPCS: 10060; 99283; 99284